=== PATIENT | male | born 1950 | race Caucasian/White ===

== ENCOUNTER → 2025-01-12 12:39 | Outpatient (BNVA) | payer MEDICAID, SELFPAY | PROVIDERS: PCP Internal Medicine; Referring Provider Internal Medicine; Visit Provider Internal Medicine | DX: R07.9 Chest pain, unspecified (principal) | CPT/HCPCS: 93005; 99204 ==

== ENCOUNTER → 2025-01-12 13:29 | Outpatient (BNVA) | payer MEDICAID, SELFPAY | PROVIDERS: PCP Internal Medicine; Visit Provider Internal Medicine | DX: I48.20 Chronic atrial fibrillation, unspecified (principal); R00.2 Palpitations; I48.92 Unspecified atrial flutter; I49.3 Ventricular premature depolarization | CPT/HCPCS: 93242 ==